=== PATIENT | female | born 1995 | race Caucasian/White ===

== ENCOUNTER → 2017-10-29 | Outpatient (CLI) | payer BC, OTHER ==
[2017-10-29 17:59] LABS: FREE T4 1.04 NG/DL (0.78-1.33)
[2017-10-29 22:45] LABS: CHLAMYDIA DNA AMPLIFICATION NEGATIVE (NEGATIVE); GC DNA AMPLIFICATION NEGATIVE (NEGATIVE)
== END ==
LOC: M SMT 14:02
DX: N92.6 Irregular menstruation, unspecified (principal); Z11.3 Encounter for screening for infections with a predominantly sexual mode of transmission
CPT/HCPCS: 84443

== ENCOUNTER → 2018-10-06 | Outpatient (REF) | payer OTHER ==
[2018-10-06 19:28] LABS: CHLAMYDIA DNA AMPLIFICATION NEGATIVE (NEGATIVE); GC DNA AMPLIFICATION NEGATIVE (NEGATIVE)
== END ==
LOC: M LAB REF 17:01
PROVIDERS: ATTEND Advanced Practice Midwife
DX: Z11.3 Encounter for screening for infections with a predominantly sexual mode of transmission (principal)

== ENCOUNTER → 2018-11-03 | Outpatient (REF) | payer OTHER | LOC: M LAB REF 13:38 | PROVIDERS: ATTEND Advanced Practice Midwife | DX: Z12.4 Encounter for screening for malignant neoplasm of cervix (principal) ==

== ENCOUNTER → 2020-05-04 | Outpatient (REF) | payer OTHER ==
[2020-05-04 16:33] LABS: CHLAMYDIA DNA AMPLIFICATION NEGATIVE (NEGATIVE); GC DNA AMPLIFICATION NEGATIVE (NEGATIVE)
== END ==
LOC: M SFHCWAGY 13:26
PROVIDERS: ATTEND Advanced Practice Midwife
DX: Z11.3 Encounter for screening for infections with a predominantly sexual mode of transmission (principal)

== ENCOUNTER → 2021-03-23 | Outpatient (CLI) | payer BC, OTHER ==
[~2021-03-23] MED LIST: FAMO40TA3 PO; FLUTISP NARES; ZYRTTAB8 PO
== END ==
LOC: M LABSMTC 10:12
PROVIDERS: ATTEND Anesthesiology
DX: Z01.818 Encounter for other preprocedural examination (principal); Z11.52 Encounter for screening for COVID-19

== ENCOUNTER 2021-03-28 11:49 | Day surgery (SDC) | payer BC, OTHER ==
[~2021-03-28] VITALS: Ht 160 cm; Wt 52.2 kg
[~2021-03-28 11:49] MED LIST changes: +NS 1,000 ML IV ONE
--- NOTE | 2021-03-28 13:57 | ROOR ---
Patient Name: Maria R Salazar Procedure Date: 03/28/2021 1:45 PM Date of : 1995 Age: 25 Room: [facility] Gender: Female Note Status: Finalized Procedure: Upper GI endoscopy Indications: Suspected esophageal reflux Providers: Darron Busby DO Referring MD: Emmanuelle PRIEST DO Requesting Provider: Medicines: Propofol per Anesthesia Complications: No immediate complications. Procedure: Pre-Anesthesia Assessment: - Prior to the procedure, a History and Physical was performed, and patient medications and allergies were reviewed. The patient is competent. The risks and benefits of the procedure and the sedation options and risks were discussed with the patient. All questions were answered and informed consent was obtained. Patient identification and proposed procedure were verified by the physician, the nurse, the brick yard hand and the mobile battery technician in the endoscopy suite. Mental Status Examination: alert and oriented. Airway Examination: normal oropharyngeal airway and neck mobility. Respiratory Examination: clear to auscultation. CV Examination: normal. Prophylactic Antibiotics: The patient does not require prophylactic antibiotics. Prior Anticoagulants: The patient has taken no previous anticoagulant or antiplatelet agents. ASA Grade Assessment: II - A patient with mild systemic disease. After reviewing the risks and benefits, the patient was deemed in satisfactory condition to undergo the procedure. The anesthesia plan was to use monitored anesthesia care (MAC). Immediately prior to administration of medications, the patient was re-assessed for adequacy to receive sedatives. The heart rate, respiratory rate, oxygen saturations, blood pressure, adequacy of pulmonary ventilation, and response to care were monitored throughout the procedure. The physical status of the patient was re-assessed after the procedure. The Endoscope was introduced through the mouth, and advanced to the third part of duodenum. The upper GI endoscopy was accomplished without difficulty. The patient tolerated the procedure well. Findings: Localized minimal inflammation characterized by adherent blood and congestion (edema) was found in the prepyloric region of the stomach. Biopsies were taken with a cold forceps for Helicobacter pylori testing. Estimated blood loss was minimal. The examined duodenum was normal. Biopsies for histology were taken with a cold forceps for evaluation of celiac disease. Estimated blood loss was minimal. Impression: - Gastritis. Biopsied. - Normal examined duodenum. Biopsied. Recommendation: - Patient has a contact number available for emergencies. The signs and symptoms of potential delayed complications were discussed with the patient. Return to normal activities tomorrow. Written discharge instructions were provided to the patient. - Await pathology results. - Return to my office at appointment to be scheduled. Procedure Code(s): --- Professional --- 27874, Esophagogastroduodenoscopy, flexible, transoral; with biopsy, single or multiple Diagnosis Code(s): --- Professional --- K29.70, Gastritis, unspecified, without bleeding CPT copyright 2019 [employer]. All rights reserved. The codes documented in this report are preliminary and upon ultrasound coordinator review may be revised to meet current compliance requirements. Darron Busby DO 03/28/2021 1:57:17 PM Electronically signed by Darron Busby DO Number of Addenda: 0 Note Initiated On: 03/28/2021 1:45 PM Estimated Blood Loss: Estimated blood loss was minimal.
[2021-03-28 14:04] VITALS: BP 138/62
== END 2021-03-28 14:38 | disposition home or self-care (01) ==
LOC: M OPP 11:49
PROVIDERS: ATTEND Surgery
DX: K29.70 Gastritis, unspecified, without bleeding (principal); K21.9 Gastro-esophageal reflux disease without esophagitis; Z79.899 Other long term (current) drug therapy; Z88.8 Allergy status to other drugs, medicaments and biological substances

== ENCOUNTER → 2021-09-10 | Outpatient (REF) | payer OTHER ==
[~2021-09-10] MED LIST changes: -NS 1,000 ML IV ONE
[2021-09-10 16:27] LABS: BASO # 0.1 10^3/uL (0.0-0.2); BASO % 1.3 % (0.0-1.0); EOS # 0.3 10^3/uL (0.0-0.5); EOS % 6.1 % (0.0-3.0); HEMATOCRIT 40.1 % (36.0-47.0); HEMOGLOBIN 13.2 g/dl (12.0-15.5); LYMPH % 36.2 % (24.0-44.0); MEAN CORPUSCULAR HEMOGLOBIN 30.9 pg (27.0-33.0); MEAN CORPUSCULAR HGB CONC 32.9 g/dl (32.0-36.5); MEAN CORPUSCULAR VOLUME 93.9 fl (80.0-96.0); MONO # 0.5 10^3/uL (0.0-0.8); NEUTROPHILS # 2.6 10^3/uL (1.5-8.5); PLATELET COUNT, AUTOMATED 282 10^3/uL (150-450); RED BLOOD COUNT 4.27 10^6/uL (4.00-5.40); WHITE BLOOD COUNT 5.4 10^3/uL (4.0-10.0)
[2021-09-10 17:04] LABS: ALBUMIN 4.1 GM/DL (3.2-5.2); ALT/SGPT 17 U/L (12-78); BILIRUBIN,TOTAL 0.6 MG/DL (0.2-1.0); BLOOD UREA NITROGEN 14 MG/DL (7-18); CALCIUM LEVEL 9.1 MG/DL (8.5-10.1); CARBON DIOXIDE LEVEL 30 MEQ/L (21-32); CHLORIDE LEVEL 107 MEQ/L (98-107); CREATININE FOR GFR 0.85 MG/DL (0.55-1.30); FREE T4 0.99 NG/DL (0.76-1.46); GLOMERULAR FILTRATION RATE > 60.0 (>60); GLUCOSE, FASTING 69 MG/DL (70-100); POTASSIUM SERUM 4.4 MEQ/L (3.5-5.1); SODIUM LEVEL 140 MEQ/L (136-145); THYROID STIMULATING HORMONE 0.804 uIU/ML (0.358-3.740); TOTAL PROTEIN 6.6 GM/DL (6.4-8.2)
== END ==
LOC: M SFHCCLAY 11:21
PROVIDERS: ATTEND Nurse Practitioner Family
DX: Z83.2 Family history of diseases of the blood and blood-forming organs and certain disorders involving the immune mechanism (principal); K21.9 Gastro-esophageal reflux disease without esophagitis; F41.8 Other specified anxiety disorders

== ENCOUNTER → 2022-08-16 | Outpatient (REF) | payer OTHER ==
[~2022-08-16] MED LIST changes: +FLUT50SP17 NARES; -FLUTISP NARES
== END ==
LOC: M SFHCWAGY 13:04
PROVIDERS: ATTEND Nurse Practitioner Family
DX: Z12.4 Encounter for screening for malignant neoplasm of cervix (principal); Z01.419 Encounter for gynecological examination (general) (routine) without abnormal findings; Z77.9 Other contact with and (suspected) exposures hazardous to health

== ENCOUNTER → 2023-08-07 | Outpatient (REF) | payer OTHER, BC ==
[~2023-08-07] MED LIST changes: -FLUT50SP17 NARES; +FLUTISP NARES
[2023-08-07 15:10] LABS: ALT/SGPT 16 U/L (7.0-40); TRIGLYCERIDES LEVEL 49 MG/DL (<150)
== END ==
LOC: M LABDRAWC 13:09
PROVIDERS: ATTEND Dermatology
DX: Z79.899 Other long term (current) drug therapy (principal)

== ENCOUNTER → 2023-08-21 | Outpatient (REF) | payer OTHER, BC | LOC: M SFHCWAGY 12:54 | PROVIDERS: ATTEND Nurse Practitioner Family | DX: Z12.4 Encounter for screening for malignant neoplasm of cervix (principal) ==

== ENCOUNTER → 2023-09-23 | Outpatient (REF) | payer OTHER ==
[2023-09-23 13:41] LABS: ALT/SGPT 18 U/L (7.0-40); TRIGLYCERIDES LEVEL 97 MG/DL (<150)
== END ==
LOC: M LABDRAWC 11:45
PROVIDERS: ATTEND Dermatology
DX: Z79.899 Other long term (current) drug therapy (principal)

== ENCOUNTER → 2023-10-21 | Outpatient (REF) | payer BC, OTHER ==
[2023-10-21 12:31] LABS: ALT/SGPT 17 U/L (7.0-40); TRIGLYCERIDES LEVEL 119 MG/DL (<150)
== END ==
LOC: M LABDRAWC 11:02
PROVIDERS: ATTEND Dermatology
DX: Z79.899 Other long term (current) drug therapy (principal)

== ENCOUNTER → 2024-05-05 | Outpatient (CLI) | payer OTHER ==
[2024-05-05 13:39] LABS: FREE T4 1.27 NG/DL (0.89-1.76); THYROID STIMULATING HORMONE 2.747 uIU/ML (0.55-4.78)
== END ==
LOC: M PLALAB 10:29
PROVIDERS: ATTEND Nurse Practitioner Family
DX: Z12.4 Encounter for screening for malignant neoplasm of cervix (principal); Z83.49 Family history of other endocrine, nutritional and metabolic diseases; Z97.5 Presence of (intrauterine) contraceptive device; N87.1 Moderate cervical dysplasia
CPT/HCPCS: 36415; 84439; 84443; 85246; 86376; 87624; G0123

== ENCOUNTER → 2024-11-25 | Outpatient (CLI) | payer OTHER ==
[2024-11-25 17:05] LABS: Trichomonas vaginalis (AMP) NOT DETECTED (NEGATIVE)
[2024-11-25 17:28] LABS: GC DNA AMPLIFICATION NEGATIVE (NEGATIVE)
[2024-11-25 17:47] LABS: HIV 1&2 SCREEN NEGATIVE (NEGATIVE)
[2024-11-25 17:55] LABS: HEPATITIS C VIRUS ABY INDEX < 0.02 INDEX (<0.8)
[2024-11-25 20:51] LABS: GC DNA AMPLIFICATION NEGATIVE (NEGATIVE)
[2024-11-25 21:02] LABS: Trichomonas vaginalis (AMP) NOT DETECTED (NEGATIVE)
[2024-11-27 13:12] LABS: HPV APTIMA Not Detected (Not Detected)
== END ==
LOC: M PLALAB 13:52
PROVIDERS: ATTEND Nurse Practitioner Family
DX: Z12.4 Encounter for screening for malignant neoplasm of cervix (principal); Z11.3 Encounter for screening for infections with a predominantly sexual mode of transmission; N87.9 Dysplasia of cervix uteri, unspecified
CPT/HCPCS: 36415; 86705; 86780; 86803; 87340; 87389; 87624; 87661; 87810; 87850; G0123